=== PATIENT | female | born 1965 | race Caucasian/White ===

== ENCOUNTER → 2019-12-31 14:43 | Outpatient (CLI) | payer OTHER, SELFPAY ==
--- NOTE | 2019-12-31 14:54 | BI_ITS ---
MAMMOGRAPHY - BILATERAL SCREENING REASON FOR EXAM: Female, 54 years old. Routine annual screening examination. PERTINENT HISTORY: Mother with breast cancer. TECHNIQUE: Digital bilateral breast marlo (3D mammographic acquisition) in the CC and MLO projections. 2-D mediolateral oblique (MLO) and craniocaudad (CC) views of both breasts were obtained. CAD: Full Field Digital Mammography with Computer Added Detection was performed. COMPARISON: Comparison is made with prior examination dated June 04, 2014 and June 01, 2012. FINDINGS: Breast Composition: The breasts are heterogeneously dense, which may obscure small masses. There are no dominant masses or suspicious calcifications. No other significant abnormalities are identified. There has been no significant change since the prior study. BI/SCREEN MAMM (CAD) W/MARLO BILAT IMPRESSION: Stable bilateral screening mammogram. Yearly follow-up mammogram recommended. (A) ASSESSMENT CATEGORY: BIRADS Category 1: Negative. A letter regarding these results will be sent to the patient by the facility within 30 days. Approximately 10% of breast cancers are not detected by mammography. A normal mammogram should not delay biopsy of a clinically suspicious abnormality. [id number] Electronically Signed: Abel Morgan, at 15:40 EDT , Service support ,
== END ==
PROVIDERS: PCP Preventive Medicine Occupational Medicine; Referring Provider Family Medicine; Visit Provider Family Medicine
DX: Z12.31 Encounter for screening mammogram for malignant neoplasm of breast (principal); Z80.3 Family history of malignant neoplasm of breast
CPT/HCPCS: 77063; 77067

== ENCOUNTER 2022-01-31 12:12 | Emergency (ER) | payer OTHER, SELFPAY ==
[2022-01-31 12:14] VITALS: BP 112/64; PULSE 83; RESP 14; TEMP 36.3; BMI 27.0
--- NOTE | 2022-01-31 12:30 | EDS_ITS ---
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 Around 630 last evening there was a resident who had sat down on the floor. Patient and another aide had to pick her up off the floor. Patient states that when she did this she felt a pulling sensation in her right low back. Over the next hour to hour and a half she had increasing tightness in her right low back. While driving home she had pain shooting down her right leg and that her right leg went numb. She took tizanidine and Tylenol at home last evening. Around 2 AM she got up to go the restroom and had difficulty getting off the commode secondary to pain. She denies problems with bowel or bladder control. PFSH PFSH Medical History Anxiety Back pain Depression Smoker Home Medications cyclobenzaprine 10 mg tablet 10 mg PO TID PRN Muscle Spasm ##10 04/30/13 [Rx Last Taken Unknown] hydrocodone 5 mg-acetaminophen 500 mg tablet 1 - 2 tab PO Q6H PRN PRN Pain #14 tabs 04/30/13 [Rx Last Taken Unknown] prednisone 20 mg tablet 40 mg PO DAILY #8 tabs 01/31/22 [Rx Last Taken Unknown] Allergy/AdvReac Type Severity Reaction Status Date / Time codeine Allergy Hives Verified 01/31/22 12:14 Sulfa (Sulfonamide Allergy Swelling Verified 01/31/22 12:14 Antibiotics) Surgical History (Updated 01/31/22 @ 12:39 by Jose Toledo) History of cholecystectomy History of gastric bypass Social History Smoking Status: Never smoker ROS ROS ED Constitutional Constitutional ED: Denies chills or fever(s) Eyes Eyes: Denies change in vision or discharge from eye(s) ENT ENT ED: Denies discharge from eye(s), rhinorrhea or sore throat Cardiovascular Cardiovascular: Denies chest pain or palpitations Respiratory/Chest Respiratory/Chest: Denies cough or dyspnea Gastrointestinal Gastrointestinal: Denies abdominal pain, diarrhea, nausea or vomiting Genitourinary Genitourinary ED: Denies difficulty urinating or dysuria Musculoskeletal Musculoskeletal: Reports back pain and extremity pain Integumentary Denies Abrasions or rash Neurologic Neurologic: Reports paresthesias and weakness; Denies headache(s) Psychiatric Psychiatric: Denies anxiety or depression Endocrine Endocrinology: Denies polydipsia or polyuria Allergic/Immunologic Allergic/Immunologic ED: Denies lip swelling or urticaria EXAM Physical Exam Const Vital Signs: 01/31/22 12:14 01/31/22 12:37 Temperature 97.3 F L Temperature Source Temporal Pulse Rate 83 82 Respiratory Rate 14 15 Blood Pressure 112/64 134/71 H Blood Pressure Mean 80 92 Pulse Ox 98 Oxygen Delivery Method Room Air Room Air Positive well nourished and well developed General Appearance ED: well developed HEENT Reports normocephalic and head/scalp atraumatic Eyes PERRL and EOMs intact bilaterally Neck supple Chest Wall inspection of chest normal and palpation of chest normal Resp normal respiratory effort and clear to auscultation bilaterally Cardio regular rate and regular rhythm GI normal to inspection, nondistended, normoactive bowel sounds Palpation: soft Back/Spine Back/Spine Narrative: Reproducible tenderness in the right lower lumbar paraspinal muscles. No midline tenderness. Extremity normal to inspection Neuro oriented x3 and no sensory deficits noted Neuro Narrative: Good strength in the right lower extremity with slow purposeful movements. Normal sensation on testing at this time. Sensorium / Orientation: alert Motor Exam: strength 5/5 throughout Psych mental status grossly normal Skin no rashes or lesions noted MDM MDM MDM Narrative Medical decision making narrative: Patient sent for lumbar spine x-rays. Radiography Diagnostic Testing: Clinical Impression(s) from Imaging Studies Lumbar Spine X-Ray 01/31/22 12:30 IMPRESSION: No acute fracture or dislocation identified in the lumbar spine. Mild degenerative change. Electronically Signed: Nnifa Soto MD at 13:23 EDT , Treatment and Re-Evaluation Narrative: L-spine x-rays are obtained. Per my interpretation no acute findings noted. Radiology interpretation also reviewed. Test results discussed with the patient. She is reassured with this. I did advise her that we cannot see the d iscs or nerves on the x-ray. Patient will continue her tizanidine at home for spasm. She states that she is unable to take NSAIDs because of a prior gastric bypass surgery. She can take prednisone and I will write her a short burst of this to help with pain. Discharge Plan Triage Chief Complaint: Back ED Provider: Cindy Stoner Dx/Rx/DC Orders Clinical Impression: Lumbar strain, Back spasm Instructions: ED Back Pain (Acute or Chronic), ED Back Sprain/Strain Prescriptions: New prednisone 20 mg tablet 40 mg PO DAILY Qty: 8 0RF No Action cyclobenzaprine 10 MG tablet 10 mg PO TID PRN (Reason: Muscle Spasm) Qty: 10 0RF hydrocodone-acetaminophen 1 EACH tablet 1 - 2 tab PO Q6H PRN PRN (Reason: Pain) Qty: 14 0RF Stand Alone Forms: Work Status Form Primary Care Provider: Mario Shannon Referrals: [facility] [Group of Physicians] - 3-5 Days Derrek Greenfield DO [Non-Staff] - Disposition Disposition: Home, Self Care
--- NOTE | 2022-01-31 12:30 | RAD_ITS ---
HISTORY: injury. TECHNIQUE: XR Spine Lumbar 2 or 3 Views. COMPARISON: None. FINDINGS: VERTEBRAE: Vertebral body heights preserved. Posterior elements appear intact. ALIGNMENT: No significant anterior or posterior subluxation. INTERVERTEBRAL DISCS: Mild degenerative endplate changes with intervertebral disc space narrowing of L1-2. RAD/Lumbar Spine 2 or 3 Views IMPRESSION: No acute fracture or dislocation identified in the lumbar spine. Mild degenerative change. Electronically Signed: Ninfa Soto MD at 13:23 EDT ,
[2022-01-31 12:37] VITALS: BP 134/71; PULSE 82; RESP 15; O2SAT 98
[2022-01-31 14:23] VITALS: BP 128/75; PULSE 70; RESP 15; O2SAT 99
== END 2022-01-31 14:24 | disposition home or self-care (01) ==
PROVIDERS: Emergency Provider Emergency Medicine; PCP Family Medicine; Visit Provider Emergency Medicine
DX: S39.012A Strain of muscle, fascia and tendon of lower back, initial encounter (principal); X50.0XXA Overexertion from strenuous movement or load, initial encounter; Y93.89 Activity, other specified; Y99.0 Civilian activity done for income or pay; Y92.099 Unspecified place in other non-institutional residence as the place of occurrence of the external cause; M62.830 Muscle spasm of back
CPT/HCPCS: 72100; 99282